=== PATIENT | female | born 2005 | race Caucasian/White ===

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

== ENCOUNTER 2024-02-13 18:42 | Emergency (ER) | payer SELFPAY ==
[2024-02-13 18:55] VITALS: BP 107/67; PULSE 68; RESP 16; TEMP 36.6; O2SAT 99
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
[2024-02-13] MEDS: 0.9% Normal Saline (1000mL) 1,000 ML 1000 ML IV (19:57)
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
[2024-02-13 20:44] VITALS: BP 107/60; PULSE 70
[2024-02-13 21:33] VITALS: BP 107/60; PULSE 70; RESP 18; TEMP 36.4; O2SAT 99
== END 2024-02-13 21:37 | disposition home or self-care (01) ==
PROVIDERS: Emergency Provider Emergency Medicine; Visit Provider Emergency Medicine
DX: S06.0X0A Concussion without loss of consciousness, initial encounter (principal); S80.02XA Contusion of left knee, initial encounter; R40.2412 Glasgow coma scale score 13-15, at arrival to emergency department; M25.512 Pain in left shoulder; V43.62XA Car passenger injured in collision with other type car in traffic accident, initial encounter
CPT/HCPCS: 70450; 72125; 73564; 96360; 96361; 99283; J7030; A4216